=== PATIENT | female | born 1955 | race Caucasian/White ===

== ENCOUNTER 2018-04-23 13:15 | Emergency (ER) | payer BC ==
[~2018-04-23] VITALS: Ht 152.4 cm; Wt 64.0 kg
[2018-04-23 13:23] VITALS: BP 128/75
== END 2018-04-23 13:57 | disposition home or self-care (01) ==
LOC: ER 13:16
DX: S62.101D Fracture of unspecified carpal bone, right wrist, subsequent encounter for fracture with routine healing (principal); Z88.5 Allergy status to narcotic agent; W01.0XXD Fall on same level from slipping, tripping and stumbling without subsequent striking against object, subsequent encounter
CPT/HCPCS: 99284

== ENCOUNTER 2020-11-09 09:51 | Outpatient (CLI) | payer MEDICARE, BC ==
[2020-11-09] VITALS (21 sets, daily range): BP systolic 86–118; BP diastolic 33–77
== END 2020-11-09 23:59 | disposition home or self-care (01) ==
LOC: CARD DIAG 09:51
PROVIDERS: ATTEND Internal Medicine Cardiovascular Disease
DX: R55 Syncope and collapse (principal)
CPT/HCPCS: 93660